=== PATIENT | female | born 1950 | race African-American/Black ===

== ENCOUNTER 2024-09-07 13:39 | Emergency (ER) | payer OTHER, MEDICAID ==
[~2024-09-07] VITALS: Ht 167.6 cm; Wt 68.0 kg
[2024-09-07] MEDS: ALBUTEROL (0.083%) 2.5MG/3ML NEB HHN STA (13:48)
[2024-09-07] MEDS: IPRATROPIUM BROMIDE (0.02%) 0.5MG/2.5ML NEB HHN STA (13:48)
[2024-09-07 14:29] LABS: EOSINOPHILS % 0.2 % (0.0-5.0); HEMATOCRIT. 33.3 % (36.0-48.0); LYMPHOCYTES % 16.8 % (20.0-50.0); MEAN CORPUSCULAR HEMOGLOBIN 32.9 pg (28.0-32.0); MEAN CORPUSCULAR HGB CONC 32.9 g/dL (31.0-37.0); MEAN PLATELET VOLUME 9.1 fl (7.4-10.4); MONOCYTES % 9.2 % (2.0-8.0); NEUTROPHILS % 72.8 % (40.0-76.0); PLATELET 174 x1000/uL (130-400); RED BLOOD CELL COUNT 3.33 mill/uL (4.2-5.4); RED CELL DISTRIBUTION WIDTH 14.8 % (11.6-14.6); WHITE BLOOD COUNT 9.7 x1000/uL (4.5-11.0)
[2024-09-07] MEDS: MAGNESIUM 2 G PREMIX 50 ML IV STA (14:29)
[2024-09-07] MEDS: METHYLPREDNISOLONE SOD SUCC 125MG/2ML (ACT-O-VIAL) IV STA (14:29)
[2024-09-07 14:32] LABS: CHLORIDE 105 mEq/L (98-107); POTASSIUM 4.3 mEq/L (3.5-5.1)
[2024-09-07 14:33] LABS: CARBON DIOXIDE 31 mEq/L (21-32); SODIUM 141 mEq/L (136-145)
[2024-09-07 14:34] LABS: CALCIUM 9.5 mg/dL (8.7-10.4)
[2024-09-07 14:35] VITALS: PULSE 100; RESP 20; O2SAT 99
[2024-09-07 14:35] LABS: INR 0.9; PROTHROMBIN TIME 10.5 sec (9.6-11.0)
[2024-09-07 14:38] LABS: CREATININE 0.9 mg/dL (0.6-1.0)
[2024-09-07 14:39] LABS: GLUCOSE 74 mg/dL (70-105); TROPONIN I HIGH SENSITIVITY 10 ng/L (3.0-34); UREA NITROGEN BLOOD 15 mg/dL (9-23)
[2024-09-07 14:40] LABS: ALANINE AMINOTRANSFERASE < 7 IU/L (10-49); ASPARTATE AMINOTRANSFERASE 16 IU/L (<34)
[2024-09-07 14:41] LABS: ALBUMIN 4.1 g/dL (3.2-4.8); BILIRUBIN DIRECT 0.1 mg/dL (<=3.0); BILIRUBIN TOTAL 0.6 mg/dL (0.1-1.0); PROTEIN TOTAL 6.8 g/dL (6.0-8.3)
[2024-09-07] MEDS: AZITHROMYCIN 500 MG TABLET PO STA (14:44)
[2024-09-07 19:43] VITALS: BP 139/77; PULSE 117; RESP 22; TEMP 36.16956; O2SAT 99
== END 2024-09-07 20:15 | disposition short-term general hospital (02) ==
LOC: ER 13:48
DX: J44.1 Chronic obstructive pulmonary disease with (acute) exacerbation (principal); I10 Essential (primary) hypertension
CPT/HCPCS: 80076; 80048; 83880; 83690; 85025; 85610; 84484; 36415; 71045; 94640; 93005; 94070; 96365; 96375; 99291; J3475; J2919; Z7610 ×4